=== PATIENT | female | born 1985 | race Two or more races ===

== ENCOUNTER 2023-02-01 07:15 | Day surgery (SDC) | payer OTHER ==
[~2023-02-01] VITALS: Ht 170.2 cm; Wt 68.0 kg
[~2023-02-01 07:15] MED LIST: PROTO PO; [UNRECOGNIZED DRUG - OTHER] PO
[2023-02-01] MEDS ORDERED: DICLOFENAC SODI75 MG PO (11:32)
[2023-02-01] MEDS ORDERED: PEPCID AC20 MG PO (11:32)
[2023-02-01] MEDS ORDERED: PERCOCET 5-3251 EACH PO (11:32)
[2023-02-01] MEDS ORDERED: ZOFRAN8 MG PO (11:33)
== END 2023-02-01 14:05 | disposition home or self-care (01) ==
LOC: CIR.AMB 07:15
PROVIDERS: ATTEND Surgery
DX: K81.1 Chronic cholecystitis (principal); Z20.822 Contact with and (suspected) exposure to COVID-19; I10 Essential (primary) hypertension